=== PATIENT | male | born 1980 | race Caucasian/White ===

== ENCOUNTER 2019-12-22 14:39 | Outpatient (REF) | payer SELFPAY ==
[2019-12-27 01:21] LABS: SARS-CoV-2 RNA Undetected (Undetected); SARS-CoV-2 Specimen Source Nasal
== END 2019-12-22 14:59 ==
LOC: NCHCN 14:39
PROVIDERS: PCP General Practice; Visit Provider Family Medicine
DX: Z20.828 Contact with and (suspected) exposure to other viral communicable diseases (principal)
CPT/HCPCS: U0003